=== PATIENT | female | born 2000 | race Caucasian/White ===

== ENCOUNTER 2021-12-28 16:11 | Emergency (ER) | payer MEDICAID ==
[~2021-12-28] VITALS: Ht 167.6 cm; Wt 52.0 kg
[2021-12-28 16:18] VITALS: BP 56/81
== END 2021-12-28 22:58 | disposition left against medical advice (07) ==
LOC: ER 16:11
DX: Z53.21 Procedure and treatment not carried out due to patient leaving prior to being seen by health care provider (principal)

== ENCOUNTER 2022-02-03 21:13 | Emergency (ER) | payer MEDICAID ==
[~2022-02-03] VITALS: Ht 167.6 cm; Wt 49.5 kg
[2022-02-04] MEDS ORDERED: BACITRACIN ZINC OINT UDPKT TOP ONE (00:45)
[2022-02-04 01:13] VITALS: BP 115/66
[2022-02-04] MEDS ORDERED: CEPH250C2 MT (01:35)
== END 2022-02-04 02:12 | disposition home or self-care (01) ==
LOC: ER 21:13
DX: S01.81XA Laceration without foreign body of other part of head, initial encounter (principal); W01.0XXA Fall on same level from slipping, tripping and stumbling without subsequent striking against object, initial encounter; Y93.89 Activity, other specified; Y92.9 Unspecified place or not applicable
CPT/HCPCS: 81025; 99282; Z7610

== ENCOUNTER 2024-12-17 13:07 | Emergency (ER) | payer MEDICAID ==
[~2024-12-17] VITALS: Ht 162.6 cm; Wt 66.0 kg
[~2024-12-17 13:07] MED LIST: CEPH250C2 MT
[2024-12-17 13:15] VITALS: O2SAT 99
[2024-12-17 14:22] LABS: BASOPHILS % 0.1 % (0.0-2.0); EOSINOPHILS % 0.0 % (0.0-5.0); HEMATOCRIT. 46.9 % (36.0-48.0); HEMOGLOBIN. 15.8 g/dL (12.0-16.0); LYMPHOCYTES % 8.8 % (20.0-50.0); MEAN PLATELET VOLUME 9.0 fl (7.4-10.4); MONOCYTES % 7.0 % (2.0-8.0); NEUTROPHILS % 84.1 % (40.0-76.0); PLATELET 379 x1000/uL (130-400); RED BLOOD CELL COUNT 4.97 mill/uL (4.2-5.4); RED CELL DISTRIBUTION WIDTH 13.6 % (11.6-14.6)
[2024-12-17] MEDS ORDERED: ONDANSETRON 4MG ODT PO ONE (14:30)
[2024-12-17] MEDS ORDERED: ACETAMINOPHEN 325MG TABLET PO ONE (14:30)
[2024-12-17 14:37] LABS: HCG SCREEN NEGATIVE
[2024-12-17 14:40] LABS: CREATININE 1.0 mg/dL (0.6-1.0); UREA NITROGEN BLOOD 13 mg/dL (9-23)
[2024-12-17 15:38] LABS: ASPARTATE AMINOTRANSFERASE 26 IU/L (<34); BILIRUBIN DIRECT 0.3 mg/dL (<=3.0); BILIRUBIN TOTAL 1.2 mg/dL (0.1-1.0); PROTEIN TOTAL 9.0 g/dL (6.0-8.3)
[2024-12-17] MEDS ORDERED: CEFTRIAXONE 1,000 MG in DEXT 5% WATER 100 ML IV SCH (15:45)
[2024-12-17] MEDS: ONDANSETRON HCL 4MG/2ML INJ IV ONE (16:00)
[2024-12-17] MEDS: SODIUM CHLORIDE 0.9% 2,000 ML IV ONE (16:00)
[2024-12-17] MEDS: KCL 20MEQ/100ML PREMIX 100 ML IV ONE (16:04)
[2024-12-17] MEDS: POTASSIUM CHLORIDE 20MEQ/PACKET PO ONE (16:11)
[2024-12-17] MEDS: CEFTRIAXONE 1GM/50ML 50ML IV SCH (16:15)
[2024-12-17 16:52] LABS: INR 1.0
[2024-12-17] MEDS ORDERED: ONDA4TAB50 MT (18:22)
[2024-12-17] MEDS ORDERED: POTA-202 MT (18:22)
[2024-12-17 19:36] VITALS: BP 118/51; PULSE 84; RESP 15; TEMP 36.9; O2SAT 97
== END 2024-12-17 19:37 | disposition home or self-care (01) ==
LOC: ER 13:18
DX: R11.2 Nausea with vomiting, unspecified (principal); E87.6 Hypokalemia; Z79.899 Other long term (current) drug therapy; Z79.01 Long term (current) use of anticoagulants
CPT/HCPCS: 99291; 96365; 96375; 80076; 80048; 84703; 83605; 83690; 83735; 85025; 85610; 87040; 87086; 84145; 96368; 36415; J0696; J2405; J3480; J7030; Q0162